=== PATIENT | male | born 1965 | race African-American/Black ===

== ENCOUNTER 2016-08-26 18:51 | Emergency (ER) | payer BC ==
[~2016-08-26] VITALS: Ht 180.3 cm; Wt 90.7 kg
[~2016-08-26 18:51] MED LIST: CIPROFLOXACIN500 M1 PO; CLARITIN10 MG PO; DEEP SEA NASAL44 M1 NASAL; FLOMAX PO; NOHOMEMEDICATIONS; PREDNISONE 10 M10 MG PO; TAMSULOSIN HCL0.4 MG PO
[2016-08-26 19:45] LABS: MCH 28.5 pg (26.0-34.0); WBC 8.3 thou/uL (4.0-11.0)
[2016-08-26 19:47] LABS: ABSOLUTE NEUTROPHILS 5.4 thou/uL (1.4-8.2); BASOPHILS 1.2 % (0.0-2.0); EOSINOPHILS 1.1 % (0.0-3.0); HEMATOCRIT 42.1 % (42.0-52.0); LYMPHOCYTES 25.5 % (24.0-44.0); MCHC 33.3 % (28.0-37.0); MCV 85.7 fL (80.0-100.0); MONOCYTES 6.7 % (1.0-8.0); POLYS 65.5 % (36.0-66.0); RBC 4.91 mil/uL (4.50-6.00); RDW 13.1 % (10.5-14.5)
[2016-08-26 19:48] LABS: MANUAL DIFF NO
[2016-08-26 19:53] LABS: CALCIUM 9.6 mg/dL (8.5-10.1); CREATININE 1.1 mg/dL (0.6-1.3); POTASSIUM 4.1 mmol/L (3.5-5.1)
[2016-08-26 19:58] LABS: ALBUMIN 4.1 g/dL (3.4-5.0); TOTAL BILIRUBIN 0.5 mg/dL (<0.1-1.0); TOTAL PROTEIN 7.7 g/dL (6.4-8.2)
[2016-08-26 20:08] LABS: LARGE PLATELETS RARE; PLATELET COUNT 239 thou/uL (150-400)
[2016-08-26 21:17] LABS: URINE BILIRUBIN NEGATIVE (Negative); URINE BLOOD NEGATIVE (Negative); URINE COLOR YELLOW; URINE GLUCOSE-RANDOM* NEGATIVE (Negative); URINE KETONES 1+ (Negative); URINE LEUKOCYTES-REFLEX NEGATIVE (Negative); URINE PROTEIN (DIPSTICK) NEGATIVE (Negative); URINE UROBILINOGEN 0.2 E.U./dl (0.2-1.0)
[2016-08-27 00:04] VITALS: BP 139/84
== END 2016-08-27 00:04 | disposition short-term general hospital (02) ==
LOC: ER 18:51
PROVIDERS: Emergency Medicine
DX: K56.69 Other intestinal obstruction (principal); Z90.79 Acquired absence of other genital organ(s)